=== PATIENT | male | born 1945 | race Caucasian/White ===

== ENCOUNTER 2021-12-17 08:33 | Emergency (ER) | payer MEDICARE, OTHER ==
[2021-12-17] MEDS ORDERED: Reglan 10 MG/2 ML IV ONE (09:06)
[2021-12-17] MEDS ORDERED: TYLENOL 325 MG PO ONE (09:06)
[2021-12-17] MEDS ORDERED: BENADRYL 50 MG/ML IV ONE (09:06)
[2021-12-17 09:28] LABS: Absolute Neutrophil Ct (ANC) 2.98 x10^3/uL (1.4-6.9); Basophil (Absolute #) 0.03 x10^3/uL (0-0.4); Eosinophil (Absolute #) 0.16 x10^3/uL (0-0.5); Hematocrit 41.6 % (42-50); Hemoglobin 13.7 g/dL (12.5-18.0); Lymphocyte (Absolute #) 1.53 x10^3/uL (1.0-4.6); Lymphocytes % 28.4 % (24.0-44.0); Mean Cell Volume 92.7 fL (78-100); Mean Corpuscular Hemoglobin 30.5 pg (26-32); Mean Corpuscular Hgb Concent. 32.9 g/dL (32-36); Monocyte (Absolute #) 0.66 x10^3/uL (0.0-1.3); Monocytes % 12.3 % (0.0-12.0); Neutrophil % 55.3 % (36.0-66.0); Platelet Count 144 x10^3/uL (150-450); Red Blood Count 4.49 x10^6/uL (4.1-5.6); Red Cell Distribution Width 15.6 % (11.5-14.0); White Blood Count 5.4 x10^3/uL (4.0-10.5)
[2021-12-17] MEDS ORDERED: BENADRYL 50 MG/ML ONE (09:28)
[2021-12-17] MEDS ORDERED: TYLENOL 325 MG ONE (09:28)
[2021-12-17] MEDS ORDERED: Reglan 10 MG/2 ML ONE (09:29)
[2021-12-17 09:45] LABS: ALBUMIN 3.9 g/dL (3.5-5.0); ALKALINE PHOSPHATASE 83 U/L (38-126); ANION GAP 11.8 MEQ/L (5-15); BLOOD UREA NITROGEN 27 mg/dL (9-20); CHLORIDE 105 mmol/L (98-107); Calcium 8.9 mg/dL (8.4-10.2); Carbon Dioxide 24 mmol/L (22-30); Creatinine 1 0.85 mg/dL (0.66-1.25); EST GLOMERULAR FILTRATION RATE > 60.0 ML/MIN; Glucose 104 mg/dL (74-106); MAGNESIUM 2.1 mg/dL (1.6-2.3); Potassium 4.1 mmol/L (3.5-5.1); SGOT/AST 26 U/L (17-59); SGPT/ALT 35 U/L (0-50); SODIUM 137 mmol/L (137-145); Total Protein 6.8 g/dL (6.3-8.2)
[2021-12-17 13:36] LABS: Mucus SLIGHT /HPF (NEGATIVE)
[2021-12-17 13:41] LABS: Appearance CLEAR (CLEAR); Bilirubin NEGATIVE (NEGATIVE); Glucose NEGATIVE (NEGATIVE); Ketones NEGATIVE (NEGATIVE); Nitrite NEGATIVE (NEGATIVE); Protein,Urine Dip NEGATIVE (Negative); RBC NEGATIVE Ery/ul (0-5); Specific Gravity 1.015 (1.005-1.025); Urine Cultured Indicated? NO; Urobilinogen 0.2 mg/dL (0-1)
[2021-12-17 13:42] LABS: Dipstick done @ ? MAIN LAB
[2021-12-17] MEDS ORDERED: DECADRON 10MG INJ. IV ONE (15:23)
[2021-12-17] MEDS ORDERED: DECADRON 10MG INJ. ONE (15:29)
[2021-12-17 15:36] VITALS: PULSE 56
[2021-12-17 15:41] VITALS: BP 135/76; O2SAT 97
--- NOTE | 2021-12-17 15:50 | ERPHSYRPT ---
- History of Present Illness Time Seen by Provider: 12/17/21 09:02 Source: patient Exam Limitations: no limitations Patient Subjective Stated Complaint: Pt c/o of a headache for the past 2 weeks has dizziness, pt was tested 2 weeks ago for covid and it was negative, pt sta marguerite that he had a stroke last year and he also has chronic bronchitis and pulmonary fibrosis so he does have a cough Triage Nursing Assessment: Pt brought self to the ER, hypertensive, rates pain as 4-5/10, reports that his BP is usually 90/50, pulses normal, skin n/w/d, head pain in the frontal region, doesn't appear to be in any distress Physician History: 75-year-old male with history of atrial fibrillation on Xarelto, 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 Reports associated dizziness and lightheadedness but no numbness tingling focal weakness or visual disturbance. No difficulty speech. Denies any gait change. Denies any chest pain palpitations or shortness of breath but what he has at his baseline since COVID infection. No fever or chills reported. Known neck pain, nausea or vomiting associated with headache. Patient initially thought it is probably his sinuses and has taken [id number] medication with no significant relief. Timing/Duration: week(s) (2), gradual onset, worse Quality: aching, dullness Head Pain Location: frontal Severity of Pain-Max: moderate Severity of Pain-Current: moderate Recent Head Trauma: no recent headache/trauma Associated Symptoms: dizziness, No fever/chills, No light-headedness, No loss of consciousness, No nausea/vomiting, No nasal congestion, No nasal drainage, No neck pain, No numbness in legs/feet, No rash, No sweating, No scotoma, No seizures, No sinus infection, No sensitive to light, No speech problems, No stiff neck, No trouble walking, No vision changes, No visual disturbance, No weakness Previous symptoms: no prior history Allergies/Adverse Reactions: quinidine Allergy (Verified 12/17/21 09:02) simvastatin [From Zocor] Allergy (Verified 12/17/21 09:02) amoxicillin [From Augmentin] Adverse Reaction (Verified 12/17/21 09:02) budesonide [From Symbicort] Adverse Reaction (Verified 12/17/21 09:02) clavulanic acid [From Augmentin] Adverse Reaction (Verified 12/17/21 09:02) formoterol [From Symbicort] Adverse Reaction (Verified 12/17/21 09:02) Home Medications: Albuterol Sulfate [Albuterol Sulfate Hfa] 2 inh PO UD PRN 12/17/21 [History] Atorvastatin Calcium [Lipitor 40Mg] 40 mg PO HS 12/17/21 [History] Cetirizine HCl 10 mg PO DAILY 12/17/21 [History] Finasteride 5 mg [Proscar 5 MG] 5 mg PO DAILY 12/17/21 [History] Fluticasone Propionate [Fluticasone Propionate Hfa] 2 inh PO DAILY 12/17/21 [History] Olodaterol HCl [Striverdi Respimat] 2 inh PO DAILY 12/17/21 [History] [place]-3/Dha/Epa/Fish Oil [Fish Oil 500 mg Softgel] 3 tab PO DAILY 12/17/21 [History] Omeprazole 20 mg PO BID 12/17/21 [History] Pyridoxine HCl (Vitamin B6) [Pyridoxine HCl] 50 mg PO DAILY 12/17/21 [History] Rivaroxaban [Xarelto] 20 mg PO DAILY 12/17/21 [History] Sertraline HCl 100 mg PO DAILY 12/17/21 [History] Tamsulosin HCl 0.4 mg [Flomax 0.4 MG] 0.4 mg PO DAILY 12/17/21 [History] polyethylene glycoL 3350 [Polyethylene Glycol 3350] 17 gm PO DAILY 12/17/21 [History] Hx Tetanus, Diphtheria Vaccination/Date Given: Yes Hx Influenza Vaccination/Date Given: No Hx Pneumococcal Vaccination/Date Given: No Travel Risk - International Travel Have you traveled outside of the country in past 3 weeks: No - Coronavirus Screening Are you exhibiting any of the following symptoms?: Yes Symptoms: Shortness of Breath, Headaches/Body Aches/Fatigue - Vaccine Status Have you recieved a Covid-19 vaccination: Yes 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[employer] - Vaccination Dates Date of 2cond Vaccination (if applicable): 2020 - Review of Systems Constitutional: No Symptoms Eyes: No Symptoms Ears, Nose, & Throat: No Symptoms Respiratory: Dyspnea Cardiac: No Symptoms Abdominal/Gastrointestinal: No Symptoms Genitourinary Symptoms: No Symptoms Musculoskeletal: No Symptoms Skin: No Symptoms Neurological: Dizziness, Headache Psychological: No Symptoms Endocrine: No Symptoms Hematologic/Lymphatic: No Symptoms Immunological/Allergic: No Symptoms - Past Medical History Pertinent Past Medical History: Yes Neurological History: Peripheral Neuropathy, TIA ENT History: No Pertinent History Cardiac History: Arrhythmia, High Cholesterol Respiratory History: No Pertinent History Endocrine Medical History: No Pertinent History Musculoskeletal History: Arthritis GI Medical History: Hernia History: No Pertinent History Psycho-Social History: No Pertinent History Male Reproductive Disorders: No Pertinent History Other Medical History: TMJ - Past Surgical History Past Surgical History: Yes Neuro Surgical History: No Pertinent History Cardiac: No Pertinent History Respiratory: No Pertinent History Gastrointestinal: No Pertinent History Genitourinary: No Pertinent History Musculoskeletal: Orthopedic Surgery Male Surgical History: No Pertinent History - Social History Smoking Status: Never smoker Exposure to second hand smoke: No Drug Use: none Patient Lives Alone: No - Nursing Vital Signs Nursing Vital Signs: Initial Vital Signs Temperature 97.6 F 12/17/21 08:38 Pulse Rate 53 L 12/17/21 08:38 Blood Pressure 166/93 12/17/21 08:38 O2 Sat by Pulse Oximetry 97 12/17/21 08:38 Pain Scale Pain Intensity 3 - Physical Exam General Appearance: no apparent distress, alert Eye Exam: PERRL/EOMI, eyes nml inspection Ears, Nose, Throat Exam: normal ENT inspection, TMs normal, pharynx normal, moist mucous membranes Neck Exam: normal inspection, non-tender, supple, full range of motion, No meningismus Respiratory Exam: normal breath sounds, lungs clear Cardiovascular Exam: normal heart sounds, bradycardia Gastrointestinal/Abdominal Exam: soft, normal bowel sounds, No tenderness Extremity Exam: normal inspection, normal range of motion Mental Status Exam: alert, oriented x 3, 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 Exam: normal hearing, normal speech, PERRL Coordination/Gait Exam: normal finger to nose, normal cerebellar function Motor/Sensory Exam: no motor deficit, no sensory deficit, negative Babinski's sign DTR Exam: bicep (R): 2+, bicep (L): 2+, knee (R): 2+, knee (L): 2+ Skin Exam: normal color SpO2 Interpretation: normal SpO2: 97 O2 Delivery: Room Air - Course EKG Interpreted by Me: RATE ([id number]), Sinus Rishi, NORMAL AXIS, NORMAL INTERVALS, Non-specific ST Changes Ordered Tests: Active Orders 24 hr Category Date Time Status Livestock Counter STAT Care 12/17/21 09:02 Completed EKG-ER Only STAT Care 12/17/21 09:02 Completed IV Insertion STAT Care 12/17/21 09:02 Completed NPO (ED) STAT Care 12/17/21 09:03 Completed HEAD WITHOUT CONTRAST [CT] Stat Exams 12/17/21 09:03 Completed CBC W DIFF Stat Lab 12/17/21 09:20 Completed CMP Stat Lab 12/17/21 09:20 Completed MAGNESIUM Stat Lab 12/17/21 09:20 Completed SED RATE [Erythrocyte Sedimentation Rate] Stat Lab 12/17/21 09:20 Completed TROPONIN Q4H Lab 12/17/21 09:20 Completed TROPONIN Q4H Lab 12/17/21 13:08 Completed UA W/RFX CULTURE Stat Lab 12/17/21 12:30 Completed Medication Summary Discontinued Medications Generic Name Dose Route Start Last Admin Trade Name Mikhail PRN Reason Stop Dose Admin Acetaminophen 975 mg 12/17/21 09:06 12/17/21 09:30 Acetaminophen 325 Mg Tablet PO 12/17/21 09:07 975 mg STAT ONE Administration Acetaminophen Confirm 12/17/21 09:28 Acetaminophen 325 Mg Tablet Administered 12/17/21 09:29 Dose 975 mg .ROUTE .STK-MED ONE Dexamethasone Sodium Phosphate 10 mg 12/17/21 15:23 12/17/21 15:30 Dexamethasone Sod Phosphate 10 Mg/Ml IV 12/17/21 15:24 10 mg STAT ONE Administration Dexamethasone Sodium Phosphate Confirm 12/17/21 15:29 Dexamethasone Sod Phosphate 10 Mg/Ml Administered 12/17/21 15:30 Dose 10 mg .ROUTE .STK-MED ONE Diphenhydramine HCl 25 mg 12/17/21 09:06 12/17/21 09:30 Diphenhydramine Hcl 50 Mg/Ml Vial IV 12/17/21 09:07 25 mg STAT ONE Administration Diphenhydramine HCl Confirm 12/17/21 09:28 Diphenhydramine Hcl 50 Mg/Ml Vial Administered 12/17/21 09:29 Dose 50 mg .ROUTE .STK-MED ONE Metoclopramide HCl 10 mg 12/17/21 09:06 08/06/22 09:30 Metoclopramide Hcl 10 Mg/2 Ml Vial IV 12/17/21 09:07 10 mg STAT ONE Administration Metoclopramide HCl Confirm 12/17/21 09:29 Metoclopramide Hcl 10 Mg/2 Ml Vial Administered 12/17/21 09:30 Dose 10 mg .ROUTE .STK-MED ONE Lab/Rad Data: Laboratory Result Diagrams 12/17/21 09:20 12/17/21 09:20 Laboratory Results 12/17/21 12/17/21 12/17/21 Range/Units 13:08 12:30 09:20 WBC (4.0-10.5) x10^3/uL RBC (4.1-5.6) x10^6/uL Hgb (12.5-18.0) g/dL Hct (42-50) % MCV (78-100) fL MCH (26-32) pg MCHC (32-36) g/dL RDW (11.5-14.0) % Plt Count (150-450) x10^3/uL MPV (7.5-11.0) fL Gran % (36.0-66.0) % Immature Gran % (Auto) (0.00-0.4) % Nucleat RBC Rel Count (0.00-0.1) % Eos # (Auto) (0-0.5) x10^3/uL Immature Gran # (Auto) (0.00-0.03) x10^3u/L Absolute Lymphs (auto) (1.0-4.6) x10^3/uL Absolute Monos (auto) (0.0-1.3) x10^3/uL Absolute Nucleated RBC (0.00-0.01) x10^3u/L Lymphocytes % (24.0-44.0) % Monocytes % (0.0-12.0) % Eosinophils % (0.00-5.0) % Basophils % (0.0-0.4) % Absolute Granulocytes (1.4-6.9) x10^3/uL Basophils # (0-0.4) x10^3/uL ESR 7 (0-15) mm/hr Sodium (137-145) mmol/L Potassium (3.5-5.1) mmol/L Chloride (98-107) mmol/L Carbon Dioxide (22-30) mmol/L Anion Gap (5-15) MEQ/L BUN (9-20) mg/dL Creatinine (0.66-1.25) mg/dL Estimated GFR ML/MIN Glucose (74-106) mg/dL Calcium (8.4-10.2) mg/dL Magnesium (1.6-2.3) mg/dL Total Bilirubin (0.2-1.3) mg/dL AST (17-59) U/L ALT (0-50) U/L Alkaline Phosphatase (38-126) U/L Troponin I < 0.012 (0.000-0.034) ng/mL Serum Total Protein (6.3-8.2) g/dL Albumin (3.5-5.0) g/dL Urinalys Dipstick Clnc MAIN LAB Urine Color YELLOW (YELLOW) Urine Appearance CLEAR (CLEAR) Urine pH 7.0 (5-6) Ur Specific [place] 1.015 (1.005-1.025) POC Urine Protein Conf NEGATIVE (Negative) Urine Ketones NEGATIVE (NEGATIVE) Urine Nitrite NEGATIVE (NEGATIVE) Urine Bilirubin NEGATIVE (NEGATIVE) Urine Urobilinogen 0.2 (0-1) mg/dL Urine Leukocytes NEGATIVE (NEGATIVE) Urine WBC (Auto) NONE (0-5) /HPF Urine RBC (Auto) NONE (0-2) /HPF U Epithel Cells (Auto) NONE (FEW) /HPF Urine Bacteria (Auto) NONE (NEGATIVE) /HPF Urine RBC NEGATIVE (0-5) Gil/ul Urine Mucus (Auto) SLIGHT (NEGATIVE) /HPF Ur Culture Indicated? NO Urine Glucose NEGATIVE (NEGATIVE) mg/dL 12/17/21 12/17/21 12/17/21 Range/Units 09:20 09:20 09:20 WBC 5.4 (4.0-10.5) x10^3/uL RBC 4.49 (4.1-5.6) x10^6/uL Hgb 13.7 (12.5-18.0) g/dL Hct 41.6 L (42-50) % MCV 92.7 (78-100) fL MCH 30.5 (26-32) pg MCHC 32.9 (32-36) g/dL RDW 15.6 H (11.5-14.0) % Plt Count 144 L (150-450) x10^3/uL MPV 10.0 (7.5-11.0) fL Gran % 55.3 (36.0-66.0) % Immature Gran % (Auto) 0.4 (0.00-0.4) % Nucleat RBC Rel Count 0.0 (0.00-0.1) % Eos # (Auto) 0.16 (0-0.5) x10^3/uL Immature Gran # (Auto) 0.02 (0.00-0.03) x10^3u/L Absolute Lymphs (auto) 1.53 (1.0-4.6) x10^3/uL Absolute Monos (auto) 0.66 (0.0-1.3) x10^3/uL Absolute Nucleated RBC 0.00 (0.00-0.01) x10^3u/L Lymphocytes % 28.4 (24.0-44.0) % Monocytes % 12.3 H (0.0-12.0) % Eosinophils % 3.0 (0.00-5.0) % Basophils % 0.6 (0.0-0.4) % Absolute Granulocytes 2.98 (1.4-6.9) x10^3/uL Basophils # 0.03 (0-0.4) x10^3/uL ESR (0-15) mm/hr Sodium 137 (137-145) mmol/L Potassium 4.1 (3.5-5.1) mmol/L Chloride 105 (98-107) mmol/L Carbon Dioxide 24 (22-30) mmol/L Anion Gap 11.8 (5-15) MEQ/L BUN 27 H (9-20) mg/dL Creatinine 0.85 (0.66-1.25) mg/dL Estimated GFR > 60.0 ML/MIN Glucose 104 (74-106) mg/dL Calcium 8.9 (8.4-10.2) mg/dL Magnesium 2.1 (1.6-2.3) mg/dL Total Bilirubin 0.50 (0.2-1.3) mg/dL AST 26 (17-59) U/L ALT 35 (0-50) U/L Alkaline Phosphatase 83 (38-126) U/L Troponin I < 0.012 (0.000-0.034) ng/mL Serum Total Protein 6.8 (6.3-8.2) g/dL Albumin 3.9 (3.5-5.0) g/dL Urinalys Dipstick Clnc Urine Color (YELLOW) Urine Appearance (CLEAR) Urine pH (5-6) Ur Specific [place] (1.005-1.025) POC Urine Protein Conf (Negative) Urine Ketones (NEGATIVE) Urine Nitrite (NEGATIVE) Urine Bilirubin (NEGATIVE) Urine Urobilinogen (0-1) mg/dL Urine Leukocytes (NEGATIVE) Urine WBC (Auto) (0-5) /HPF Urine RBC (Auto) (0-2) /HPF U Epithel Cells (Auto) (FEW) /HPF Urine Bacteria (Auto) (NEGATIVE) /HPF Urine RBC (0-5) Gil/ul Urine Mucus (Auto) (NEGATIVE) /HPF Ur Culture Indicated? Urine Glucose (NEGATIVE) mg/dL - Progress Progress: improved Air Movement: good Progress Note: 12/17/21 15:49 75-year-old is evaluated for persistent headache for 2 weeks. He is given Benadryl and Reglan along with Tylenol, on reevaluation headache is much improved. Obtained CT head which is negative for any acute findings. Baseline lab work grossly unremarkable. Obtained [facility] neurology consult we do not think patient symptoms and findings are consistent with stroke but more of a tension headache. Recommended Toradol or Decadron. I have given him Decadron and recommended taking Tylenol at home and outpatient primary care/neurology follow-up. [facility] neurology did not recommend any further work-up and patient is stable for discharge. Discussed signs symptoms of worsening needing return to ER which he seems understanding. Blood Culture(s) Obtained: No Antibiotics given: No Discussed with : Other Counseled pt/family regarding: lab results, diagnosis, need for follow-up, rad results - Departure Departure Disposition: Home Clinical Impression: Tension headache Condition: Stable Critical Care Time: No Referrals: JO OBREGON MD [Primary Care Provider] - Follow Up with PCP/3 days Instructions: Headache, Adult (DC) Additional Instructions: Follow-up with your primary care neurologist for reevaluation early next week. Return to ER for worsening headache or if having numbness tingling weakness, visual disturbance, issues with balance etc.
--- NOTE | 2021-12-17 19:17 | XRAY ---
Indication: Headache 2 weeks. History cerebellar stroke. Multiple contiguous axial images obtained through the head without contrast. Comparison: None Age-appropriate global atrophy, minimal periventricular degenerative micro-ischemia bilaterally, and small remote lacunar infarct right basal ganglia. No acute intracranial hemorrhage, abnormal extra-axial fluid collection, or mass effect. Fourth ventricle is midline without hydrocephalus. Bony calvarium intact. Visualized paranasal sinuses and mastoid air cells are clear. Impression: Nonacute senile brain. Remote lacunar infarct right basal ganglia. Comment: Preliminary interpretation made by [facility]. No critical discrepancy.
== END 2021-12-17 16:00 | disposition home or self-care (01) ==
LOC: ED 08:33
DX: G44.209 Tension-type headache, unspecified, not intractable (principal); R42 Dizziness and giddiness; E78.5 Hyperlipidemia, unspecified; Z86.73 Personal history of transient ischemic attack (TIA), and cerebral infarction without residual deficits; Z86.16 Personal history of COVID-19; Z79.01 Long term (current) use of anticoagulants; Z79.899 Other long term (current) drug therapy
CPT/HCPCS: 36000; 36415; 70450; 80053; 81015; 83735; 84484; 85025; 85652; 93005; 93041; 96374; 96375; 99284; J1100; J1200; A9270-GY

== ENCOUNTER 2022-09-03 10:11 | Emergency (ER) | payer MEDICARE, OTHER ==
[2022-09-03] MEDS ORDERED: Sodium Chloride 0.9% 1000 ML 1,000 ML IV STA (10:38)
[2022-09-03] MEDS ORDERED: PROVENTIL 2.5 MG/3 ML NEB IH ONE ×2 (10:38→10:46)
[2022-09-03] MEDS ORDERED: solu-MEDROL 125 MG, Sterile H2O 10 ml 2 ML IV ONE ×2 (10:38)
[2022-09-03] MEDS ORDERED: solu-MEDROL ONE (10:43)
[2022-09-03] MEDS ORDERED: Sodium Chloride 0.9% 1000 ML 1,000 ML ONE (10:43)
[2022-09-03] MEDS ORDERED: Sterile H2O 10 ml IJ ONE (10:43)
--- NOTE | 2022-09-03 11:08 | ERPHSYRPT ---
- History of Present Illness Time Seen by Provider: 09/03/22 10:15 Source: patient Exam Limitations: no limitations Patient Subjective Stated Complaint: Cough Triage Nursing Assessment: Patient ambulated back to ED and transferred self to bed. Patient A+O X3. Patient's skin pink, warm and dry. Patient complains of cough and SOB for the past 3 weeks. Patient has been seen by [facility] and PCP several times and prescribed atb and steroids. Patient states he woke up today and felt SOB more today. Patient denies pain or discomfort. Lungs noted to have wheezing throughout. Patient complains of productive cough with thick yellow/green sputum. Physician History: Patient is here with cough cold congestion. Been going on 3 weeks. Patient more wheezy today. 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 Presentation Designer told him t o come in today. Patient has been on Keflex for this from urgent care. Unclear why he was placed on Keflex for a potential bronchitis. Patient has been on albuterol, steroids. He has underlying lung disease which is why he sees a director commercial sales. Today he feels slightly more short of breath. However he has a O2 sat of 98%, no tachycardia, no fever. Timing/Duration: week(s) Allergies/Adverse Reactions: metronidazole Allergy (Verified 09/03/22 10:30) quinidine Allergy (Verified 09/03/22 10:26) simvastatin [From Zocor] Allergy (Verified 09/03/22 10:26) amoxicillin [From Augmentin] Adverse Reaction (Verified 09/03/22 10:26) budesonide [From Symbicort] Adverse Reaction (Verified 09/03/22 10:26) clavulanic acid [From Augmentin] Adverse Reaction (Verified 09/03/22 10:26) formoterol [From Symbicort] Adverse Reaction (Verified 09/03/22 10:26) Home Medications: Albuterol Sulfate [Albuterol Sulfate Hfa] 2 inh PO UD PRN 12/17/21 [History] Atorvastatin Calcium [Lipitor 40Mg] 40 mg PO HS 12/17/21 [History] Cetirizine HCl 10 mg PO DAILY 12/17/21 [History] Finasteride 5 mg [Proscar 5 MG] 5 mg PO DAILY 12/17/21 [History] Fluticasone Propionate [Fluticasone Propionate Hfa] 2 inh PO DAILY 12/17/21 [History] Olodaterol HCl [Striverdi Respimat] 2 inh PO DAILY 12/17/21 [History] [place]-3/Dha/Epa/Fish Oil [Fish Oil 500 mg Softgel] 3 tab PO DAILY 12/17/21 [History] Omeprazole 20 mg PO BID 12/17/21 [History] Pyridoxine HCl (Vitamin B6) [Pyridoxine HCl] 50 mg PO DAILY 12/17/21 [History] Rivaroxaban [Xarelto] 20 mg PO DAILY 12/17/21 [History] Sertraline HCl 100 mg PO DAILY 12/17/21 [History] Tamsulosin HCl 0.4 mg [Flomax 0.4 MG] 0.4 mg PO DAILY 12/17/21 [History] polyethylene glycoL 3350 [Polyethylene Glycol 3350] 17 gm PO DAILY 12/17/21 [History] Hx Tetanus, Diphtheria Vaccination/Date Given: Yes Hx Influenza Vaccination/Date Given: Yes Hx Pneumococcal Vaccination/Date Given: No Immunizations Up to Date: Yes Travel Risk - International Travel Have you traveled outside of the country in past 3 weeks: No - Coronavirus Screening Are you exhibiting any of the following symptoms?: No Close contact with a COVID-19 positive Pt in past 14-21 Days: No - Vaccine Status Have you recieved a Covid-19 vaccination: Yes 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: [employer] - Vaccination Dates Date of 2cond Vaccination (if applicable): 2020 - Review of Systems Constitutional: No Fever, No Chills Eyes: No Symptoms Ears, Nose, & Throat: No Symptoms Respiratory: Cough, Dyspnea, Wheezing Cardiac: No Chest Pain, No Edema, No Syncope Abdominal/Gastrointestinal: No Abdominal Pain, No Nausea, No Vomiting, No Diarrhea Genitourinary Symptoms: No Dysuria Musculoskeletal: No Back Pain, No Neck Pain Skin: No Rash Neurological: No Dizziness, No Focal Weakness, No Sensory Changes Psychological: No Symptoms Endocrine: No Symptoms All Other Systems: Reviewed and Negative - Past Medical History Pertinent Past Medical History: Yes Neurological History: Peripheral Neuropathy, TIA ENT History: No Pertinent History Cardiac History: Arrhythmia, High Cholesterol Respiratory History: No Pertinent History Endocrine Medical History: No Pertinent History Musculoskeletal History: Arthritis GI Medical History: Hernia History: No Pertinent History Psycho-Social History: No Pertinent History Male Reproductive Disorders: No Pertinent History Other Medical History: TMJ - Past Surgical History Past Surgical History: Yes Neuro Surgical History: No Pertinent History Cardiac: No Pertinent History Respiratory: No Pertinent History Gastrointestinal: No Pertinent History Genitourinary: No Pertinent History Musculoskeletal: Orthopedic Surgery Male Surgical History: No Pertinent History - Social History Smoking Status: Never smoker Exposure to second hand smoke: No Drug Use: none Patient Lives Alone: No - Nursing Vital Signs Nursing Vital Signs: Initial Vital Signs Temperature 96.9 F 09/03/22 10:32 Pulse Rate 52 L 09/03/22 10:32 Respiratory Rate 20 09/03/22 10:32 Blood Pressure 145/86 09/03/22 10:32 O2 Sat by Pulse Oximetry 97 09/03/22 10:32 Pain Scale Pain Intensity 0 - Physical Exam General Appearance: no apparent distress, alert Eye Exam: PERRL/EOMI, eyes nml inspection Ears, Nose, Throat Exam: normal ENT inspection, TMs normal, pharynx normal, moist mucous membranes Neck Exam: normal inspection, non-tender, supple, full range of motion Respiratory Exam: normal breath sounds, wheezing, No respiratory distress Cardiovascular Exam: regular rate/rhythm, normal heart sounds, normal peripheral pulses Gastrointestinal/Abdomen Exam: soft, normal bowel sounds, No tenderness, No mass Back Exam: normal inspection, normal range of motion, No CVA tenderness, No vertebral tenderness Extremity Exam: normal inspection, normal range of motion, pelvis stable Neurologic Exam: alert, oriented x 3, cooperative, normal mood/affect, nml cerebellar function, nml station & gait, sensation nml, No motor deficits Skin Exam: normal color, warm, dry, No rash Lymphatic Exam: No adenopathy SpO2: 96 - Course Nursing assessment & vital signs reviewed: Yes EKG Interpreted by Me: Sinus Rhythm (No obvious ischemic changes) Ordered Tests: Active Orders 24 hr Category Date Time Status Senior Center Manager STAT Care 09/03/22 10:39 Completed EKG-ER Only STAT Care 09/03/22 10:38 Completed IV Insertion STAT Care 09/03/22 10:38 Completed CHEST WITH CONTRAST [CT] Stat Exams 09/03/22 10:38 Completed CBC W DIFF Stat Lab 09/03/22 11:08 Completed CMP Stat Lab 09/03/22 11:08 Completed NT PRO BNPII Stat Lab 09/03/22 11:08 Completed TROPONIN Q4H Lab 09/03/22 11:08 Completed Respiratory Therapy Assessment DAILY RT 09/03/22 11:02 Completed Medication Summary Discontinued Medications Generic Name Dose Route Start Last Admin Trade Name Mikhail PRN Reason Stop Dose Admin Albuterol Sulfate 2.5 mg 09/03/22 10:38 09/03/22 10:50 Albuterol Sulfate 2.5 Mg/3 Ml Neb IH 09/03/22 10:39 2.5 mg STAT ONE Administration Albuterol Sulfate Confirm 09/03/22 10:46 Albuterol Sulfate 2.5 Mg/3 Ml Neb Administered 09/03/22 10:47 Dose 2.5 mg IH .STK-MED ONE Methylprednisolone Sodium 0 mg 09/03/22 10:38 09/03/22 10:46 Succinate 125 mg/ Sterile IV 09/03/22 10:39 125 mg Water 2 ml STAT ONE Administration Sodium Chloride 1,000 mls @ 999 mls/hr 09/03/22 10:38 09/03/22 11:57 Sodium Chloride 0.9% 1000 Ml IV 09/03/22 11:38 Infused .Q1H1M STA Infusion Sodium Chloride Confirm 09/03/22 10:43 Sodium Chloride 0.9% 1000 Ml Administered 09/03/22 10:44 Dose 1,000 mls @ ud .ROUTE .STK-MED ONE Methylprednisolone Sodium Succinate Confirm 09/03/22 10:43 Methylprednis Sod Succ 125 Mg/2 Ml Vial Administered 09/03/22 10:44 Dose 125 mg .ROUTE .STK-MED ONE Sterile Water Confirm 09/03/22 10:43 Water For Injection,Sterile 10 Ml Vial Administered 09/03/22 10:44 Dose 10 ml IJ .STK-MED ONE Lab/Rad Data: Laboratory Result Diagrams 09/03/22 11:08 09/03/22 11:08 Laboratory Results 09/03/22 09/03/22 09/03/22 Range/Units 11:08 11:08 11:08 WBC (4.0-10.5) x10^3/uL RBC (4.1-5.6) x10^6/uL Hgb (12.5-18.0) g/dL Hct (42-50) % MCV (78-100) fL MCH (26-32) pg MCHC (32-36) g/dL RDW (11.5-14.0) % Plt Count (150-450) x10^3/uL MPV (7.5-11.0) fL Gran % (36.0-66.0) % Immature Gran % (Auto) (0.00-0.4) % Nucleat RBC Rel Count (0.00-0.1) % Eos # (Auto) (0-0.5) x10^3/uL Immature Gran # (Auto) (0.00-0.03) x10^3u/L Absolute Lymphs (auto) (1.0-4.6) x10^3/uL Absolute Monos (auto) (0.0-1.3) x10^3/uL Absolute Nucleated RBC (0.00-0.01) x10^3u/L Lymphocytes % (24.0-44.0) % Monocytes % (0.0-12.0) % Eosinophils % (0.00-5.0) % Basophils % (0.0-0.4) % Absolute Granulocytes (1.4-6.9) x10^3/uL Basophils # (0-0.4) x10^3/uL Sodium 140 (137-145) mmol/L Potassium 4.0 (3.5-5.1) mmol/L Chloride 104 (98-107) mmol/L Carbon Dioxide 29 (22-30) mmol/L Anion Gap 10.1 (5-15) MEQ/L BUN 23 H (9-20) mg/dL Creatinine 0.92 (0.66-1.25) mg/dL Estimated GFR > 60.0 ML/MIN Glucose 90 (74-106) mg/dL Calcium 8.5 (8.4-10.2) mg/dL Total Bilirubin 0.50 (0.2-1.3) mg/dL AST 72 H (17-59) U/L ALT 71 H (0-50) U/L Alkaline Phosphatase 99 (38-126) U/L Troponin I < 0.012 (0.000-0.034) ng/mL NT-Pro-B Natriuret Pep 358 (<300) pg/mL Serum Total Protein 7.0 (6.3-8.2) g/dL Albumin 4.0 (3.5-5.0) g/dL Influenza Type A Ag NEGATIVE (NEGATIVE) Influenza Type B Ag NEGATIVE (NEGATIVE) RSV (PCR) NEGATIVE (NEGATIVE) SARS-CoV-2 (PCR) NEGATIVE (NEGATIVE) 09/03/22 Range/Units 11:08 WBC 7.7 (4.0-10.5) x10^3/uL RBC 4.40 (4.1-5.6) x10^6/uL Hgb 14.0 (12.5-18.0) g/dL Hct 42.2 (42-50) % MCV 95.9 (78-100) fL MCH 31.8 (26-32) pg MCHC 33.2 (32-36) g/dL RDW 13.1 (11.5-14.0) % Plt Count 155 (150-450) x10^3/uL MPV 11.4 H (7.5-11.0) fL Gran % 68.4 H (36.0-66.0) % Immature Gran % (Auto) 1.0 H (0.00-0.4) % Nucleat RBC Rel Count 0.0 (0.00-0.1) % Eos # (Auto) 0.06 (0-0.5) x10^3/uL Immature Gran # (Auto) 0.08 H (0.00-0.03) x10^3u/L Absolute Lymphs (auto) 1.52 (1.0-4.6) x10^3/uL Absolute Monos (auto) 0.75 (0.0-1.3) x10^3/uL Absolute Nucleated RBC 0.00 (0.00-0.01) x10^3u/L Lymphocytes % 19.7 L (24.0-44.0) % Monocytes % 9.7 (0.0-12.0) % Eosinophils % 0.8 (0.00-5.0) % Basophils % 0.4 (0.0-0.4) % Absolute Granulocytes 5.27 (1.4-6.9) x10^3/uL Basophils # 0.03 (0-0.4) x10^3/uL Sodium (137-145) mmol/L Potassium (3.5-5.1) mmol/L Chloride (98-107) mmol/L Carbon Dioxide (22-30) mmol/L Anion Gap (5-15) MEQ/L BUN (9-20) mg/dL Creatinine (0.66-1.25) mg/dL Estimated GFR ML/MIN Glucose (74-106) mg/dL Calcium (8.4-10.2) mg/dL Total Bilirubin (0.2-1.3) mg/dL AST (17-59) U/L ALT (0-50) U/L Alkaline Phosphatase (38-126) U/L Troponin I (0.000-0.034) ng/mL NT-Pro-B Natriuret Pep (<300) pg/mL Serum Total Protein (6.3-8.2) g/dL Albumin (3.5-5.0) g/dL Influenza Type A Ag (NEGATIVE) Influenza Type B Ag (NEGATIVE) RSV (PCR) (NEGATIVE) SARS-CoV-2 (PCR) (NEGATIVE) - Progress Progress: improved Progress Note: 09/03/22 11:07 differential diagnosis includes: PNA, STEMI, NSTEMI, other infection, musculoskeletal pain, pneumothorax - We'll obtain basic labs, fluids, EKG, troponin, chest x-ray - I feel comfortable with one time negative troponin given symptoms have improved and started greater then 6 hours ago. - EKG shows no ST changes - my read. See full read below. - O2 saturations consistently greater than 95%. - CT scan of chest 09/03/22 15:03 CT scan shows no obvious change. Troponin, labs stable. Unclear why patient was on Keflex. Plan to treat with azithromycin going home. They may return here sooner for any new or changing symptoms. follow-up with patient's director commercial sales this week. Counseled pt/family regarding: lab results, diagnosis, need for follow-up, rad results Medical Desision Making - Independent Historian Additional History obtained from: Spouse - Risk of complications Minimal Risk: Minimal risk of morbidity - Departure Departure Disposition: Home Clinical Impression: Bronchitis Condition: Stable Critical Care Time: No [facility] [Primary Care Provider] - Follow up/PCP as directed Instructions: Bronchitis, Adult ED Prescriptions: Azithromycin 250 mg [Zithromax 250 MG TABLET] 250 mg PO ZPACK #6 tablet
[2022-09-03 11:18] LABS: Absolute Neutrophil Ct (ANC) 5.27 x10^3/uL (1.4-6.9); BASOPHIL % 0.4 % (0.0-0.4); Basophil (Absolute #) 0.03 x10^3/uL (0-0.4); Eosinophil % 0.8 % (0.00-5.0); Eosinophil (Absolute #) 0.06 x10^3/uL (0-0.5); Hematocrit 42.2 % (42-50); IMMATURE GRAN # 0.08 x10^3u/L (0.00-0.03); Lymphocyte (Absolute #) 1.52 x10^3/uL (1.0-4.6); Lymphocytes % 19.7 % (24.0-44.0); Mean Cell Volume 95.9 fL (78-100); Mean Corpuscular Hemoglobin 31.8 pg (26-32); Mean Corpuscular Hgb Concent. 33.2 g/dL (32-36); Mean Platelet Volume 11.4 fL (7.5-11.0); Monocyte (Absolute #) 0.75 x10^3/uL (0.0-1.3); Monocytes % 9.7 % (0.0-12.0); Neutrophil % 68.4 % (36.0-66.0); Platelet Count 155 x10^3/uL (150-450); Red Cell Distribution Width 13.1 % (11.5-14.0); White Blood Count 7.7 x10^3/uL (4.0-10.5)
[2022-09-03 11:41] LABS: ALKALINE PHOSPHATASE 99 U/L (38-126); ANION GAP 10.1 MEQ/L (5-15); BLOOD UREA NITROGEN 23 mg/dL (9-20); CHLORIDE 104 mmol/L (98-107); Calcium 8.5 mg/dL (8.4-10.2); Carbon Dioxide 29 mmol/L (22-30); Creatinine 1 0.92 mg/dL (0.66-1.25); EST GLOMERULAR FILTRATION RATE > 60.0 ML/MIN; Glucose 90 mg/dL (74-106); NT PRO BNPII 358 pg/mL (<300); SGOT/AST 72 U/L (17-59); SGPT/ALT 71 U/L (0-50); SODIUM 140 mmol/L (137-145)
[2022-09-03 12:04] LABS: INFLUENZA A NEGATIVE (NEGATIVE); INFLUENZA B NEGATIVE (NEGATIVE); RESPIRATORY SYNCTIAL VIRUS NEGATIVE (NEGATIVE); SARS-CoV-2 Xpert Express NEGATIVE (NEGATIVE)
--- NOTE | 2022-09-03 13:33 | XRAY ---
CLINICAL HISTORY:Cough, congestion, hx of gallbladder and appendix surgeries, pulmonary fibrosis; COMPARISON:Prior CT dated 10/21/2020; TECHNIQUES:Contiguous 3.[address] images of the chest were acquired with administration of intravenous contrast. Coronal and sagittal reconstructions were obtained. 100cc Isovue ( 370mg) was administered for post contrast images; FINDINGS: Redemonstration of mild reticulations in right upper lobe. Redemonstration of minimal subpleural fibrosis in right upper lobe. Few tiny subpleural nodules are again seen in right lung. One of them measures 2.5 mm. These show no change in size on the comparison. Right lung lower lobe multiple totally calcified nodule up to 10 mm are noted. No obvious mass is seen in either lung. No definite consolidative lesions. No free or encysted pleural effusion. Heart size is enlarged with left atrial dilatation. No pericardial effusion. No pathologically enlarged mediastinal, hilar or axillary lymph node identified. There is no definite mass lesion in the chest wall. Scanned upper abdomen is unremarkable. IMPRESSION: 1. Redemonstration of mild interstitial reticulation, minimal subpleural fibrosis, and few tiny subpleural nodules in right lung. 2. Right lower lobe multiple calcified nodules up to 10 mm unchanged since prior study. 3. These findings show no significant changes in comparison. Electronically Signed by: Aury Mancia MD. (09/03/2022 12:30:19 ASSISTANT COMMUNITY DIRECTOR)
[2022-09-03 13:48] VITALS: BP 130/70; PULSE 50
[2022-09-03 15:04] VITALS: O2SAT 96
== END 2022-09-03 13:52 | disposition home or self-care (01) ==
LOC: ED 10:11
DX: J40 Bronchitis, not specified as acute or chronic (principal); R05.9 Cough, unspecified; R06.02 Shortness of breath; E78.5 Hyperlipidemia, unspecified; Z79.01 Long term (current) use of anticoagulants; Z79.899 Other long term (current) drug therapy; Z20.828 Contact with and (suspected) exposure to other viral communicable diseases
CPT/HCPCS: 0241U; 36000; 36415; 71260; 80053; 83880; 84484; 85025; 93005; 93041; 94640; 96374; 99284; J2930; J7609; A9270-GY

== ENCOUNTER → 2024-01-02 | Day surgery (SDC) | payer MEDICARE, OTHER ==
[~2024-01-02] MED LIST: BUPIVACAINE 0.5% VIAL IJ ONE; Depo-Medrol 40 MG/ML IM ONE; LIDOCAINE HCL 1% 50 MG/5 ML VL PF IJ ONE
--- NOTE | 2024-01-02 16:37 | XRAY ---
Indication: Bilateral SI joint injection. Intraoperative fluoroscopy provided for 38 seconds. 2 digital spot image submitted for interpretation demonstrates posterior needle tips projecting over the expected left and right SI joints. Small amount of contrast injected for needle tip placement. Correlate with intraoperative findings/report.
--- NOTE | 2024-01-02 20:10 | XRAY ---
38 seconds of fluoroscopy was used in surgery for a bilateral sacroiliac joint injection.
== END ==
LOC: SDC-PAIN 12:38
PROVIDERS: ATTEND Psychiatry & Neurology Pain Medicine
DX: M46.1 Sacroiliitis, not elsewhere classified (principal)
CPT/HCPCS: 27096; 72202; 77002; G0260; J2001; Q9966

== ENCOUNTER 2024-02-06 12:43 | Day surgery (SDC) | payer MEDICARE, OTHER ==
[2024-02-06] MEDS ORDERED: Depo-Medrol 40 MG/ML IM ONE (12:44)
[2024-02-06] MEDS ORDERED: Xylocaine-Mpf 2% 5 Ml Vial IJ ONE (12:44)
[2024-02-06] MEDS ORDERED: Lactated Ringers 1,000 ML IV ONE (14:37)
[2024-02-06] MEDS ORDERED: DIPRIVAN 200 MG/20 ML IV ONE (14:59)
--- NOTE | 2024-02-06 16:55 | XRAY ---
Indication: Bilateral L4-S1 MBB. Intraoperative fluoroscopy provided for 12 seconds. Single digital spot image submitted for interpretation demonstrates posterior needle tips projecting over the expected left and right L4-S1 nerve roots. Correlate with intraoperative findings/report. Incidental bilateral L4-L5 posterior fusion hardware.
--- NOTE | 2024-02-06 17:05 | XRAY ---
12 seconds of fluoroscopy were used in surgery for a bilateral L4-S1 MBB.
== END 2024-02-06 15:31 | disposition home or self-care (01) ==
LOC: SDC-PAIN 12:43
PROVIDERS: ATTEND Psychiatry & Neurology Pain Medicine
DX: M47.816 Spondylosis without myelopathy or radiculopathy, lumbar region (principal)
CPT/HCPCS: 64493; 64494; 72020; 77002; J2704

== ENCOUNTER 2024-03-05 13:39 | Day surgery (SDC) | payer MEDICARE, OTHER ==
[2024-03-05] MEDS ORDERED: Sodium Chloride 0.9(Preservative Free) 10 ML IJ ONE (13:40)
[2024-03-05] MEDS ORDERED: Decadron 4 MG INJ IV ONE (13:40)
[2024-03-05] MEDS ORDERED: DIPRIVAN 200 MG/20 ML IV ONE (15:08)
--- NOTE | 2024-03-05 16:38 | XRAY ---
Indication: Left L4-S1 transforaminal NILS. Intraoperative fluoroscopy provided for 22 seconds. 5 digital spot image submitted for interpretation demonstrates posterior needle tips projecting over the expected left L4 and L5 nerve roots. Small amount of contrast injected for needle tip placement. Correlate with intraoperative findings/report. Incidental bilateral L4-L5 fusion hardware.
--- NOTE | 2024-03-05 16:45 | XRAY ---
22 seconds of fluoroscopy was used in surgery for a left L4-S1 transforaminal NILS.
== END 2024-03-05 15:29 | disposition home or self-care (01) ==
LOC: SDC-PAIN 13:39
PROVIDERS: ATTEND Psychiatry & Neurology Pain Medicine
DX: M54.16 Radiculopathy, lumbar region (principal)
CPT/HCPCS: 64483; 64484; 72100; 77003; J1100; J2704

== ENCOUNTER 2024-05-21 12:56 | Day surgery (SDC) | payer MEDICARE, OTHER ==
--- NOTE | 2024-05-21 15:13 | XRAY ---
Indication: Bilateral SI joint injection. Intraoperative fluoroscopy provided for 34 seconds. 6 digital spot images submitted for interpretation demonstrates posterior needle tips projecting over expected left and right SI joints. Small amount of contrast injected for needle tip placement. Correlate with intraoperative findings/report. Incidental partially visualized lower lumbar fusion hardware.
--- NOTE | 2024-05-21 15:17 | XRAY ---
34 seconds of fluoroscopy was used in surgery for a bilateral sacroiliac joint injection.
== END 2024-05-21 15:00 | disposition home or self-care (01) ==
LOC: SDC-PAIN 12:56
PROVIDERS: ATTEND Psychiatry & Neurology Pain Medicine
DX: M46.1 Sacroiliitis, not elsewhere classified (principal); M53.3 Sacrococcygeal disorders, not elsewhere classified
CPT/HCPCS: 27096; 72202; 77002; Q9966

== ENCOUNTER 2025-02-11 11:55 | Day surgery (SDC) | payer OTHER ==
[2025-02-11] MEDS ORDERED: BUPIVACAINE 0.5% VIAL IJ ONE (11:56)
[2025-02-11] MEDS ORDERED: methylPREDNISolone acetate IM ONE (11:56)
[2025-02-11] MEDS ORDERED: propofoL IV ONE (14:13)
[2025-02-11] MEDS ORDERED: Lactated Ringers 1,000 ML IV ONE (15:19)
--- NOTE | 2025-02-11 16:32 | XRAY ---
Indication: Bilateral L4-S1 MBB. Intraoperative fluoroscopy provided for 14 seconds. Single digital spot image submitted for interpretation demonstrates posterior needle tips projecting over expected left and right L4-S1 nerve roots. Correlate with intraoperative findings/report. Incidental bilateral L4-L5 posterior fusion hardware.
--- NOTE | 2025-02-11 16:39 | XRAY ---
14 seconds of fluoroscopy used in surgery for a bilateral L4-S1 MBB.
== END 2025-02-11 14:50 | disposition home or self-care (01) ==
LOC: SDC-PAIN 11:55
PROVIDERS: ATTEND Psychiatry & Neurology Pain Medicine
DX: M47.817 Spondylosis without myelopathy or radiculopathy, lumbosacral region (principal)

== ENCOUNTER 2025-03-04 07:04 | Day surgery (SDC) | payer OTHER ==
[2025-03-04] MEDS ORDERED: BUPIVACAINE 0.5% VIAL IJ ONE (07:05)
[2025-03-04] MEDS ORDERED: LIDOCAINE HCL 1% 50 MG/5 ML VL IJ ONE (07:05)
[2025-03-04] MEDS ORDERED: methylPREDNISolone acetate IM ONE (07:05)
[2025-03-04] MEDS ORDERED: propofoL IV ONE (07:49)
[2025-03-04] MEDS ORDERED: Lactated Ringers 1,000 ML IV ONE (08:29)
--- NOTE | 2025-03-04 11:55 | XRAY ---
Indication: Right L4-S1 RFA. Intraoperative fluoroscopy provided for 19 seconds. 3 digital spot images submitted for interpretation demonstrates posterior needle tips projecting over expected right L4-S1 nerve roots. Correlate with intraoperative findings/report. Incidental bilateral L4-L5 fusion hardware.
--- NOTE | 2025-03-04 12:32 | XRAY ---
19 seconds of fluoroscopy was used in surgery for a right L4-S1 RFA.
== END 2025-03-04 08:35 | disposition home or self-care (01) ==
LOC: SDC-PAIN 07:04
PROVIDERS: ATTEND Psychiatry & Neurology Pain Medicine
DX: M47.817 Spondylosis without myelopathy or radiculopathy, lumbosacral region (principal)